=== PATIENT | male | born 1940 | race Caucasian/White ===

== ENCOUNTER 2021-11-25 05:50 | Day surgery (SDC) | payer MEDICARE, BC ==
[~2021-11-25] VITALS: Ht 167.6 cm; Wt 96.4 kg
--- NOTE | ~2021-11-25 | OR ---
[facility] [address] [place], [place] [address] [place] DATE OF OPERATION: 11/25/2021 SURGEON: Jerome Altamirano MD PREOPERATIVE DIAGNOSES: 1. 9 x 16 mm left ureteropelvic junction calculus. 2. Persistent severe left flank pain, secondary to #1. POSTOPERATIVE DIAGNOSES: 1. 9 x 16 mm left ureteropelvic junction calculus. 2. Persistent severe left flank pain, secondary to #1. 3. 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 NAMES OF PROCEDURES: 1. Diagnostic cystoscopy with left retrograde pyelogram. 2. Balloon dilation of stenotic left ureteropelvic junction. 3. Left flexible nephro-ureteroscopy with laser lithotripsy and basket extraction of stone fragments. 4. Insertion of an indwelling 6 x 26 cm double-J ureteral stent into the left collecting system. ANESTHESIA: General. ESTIMATED BLOOD LOSS: None. COMPLICATIONS: None. SPECIMENS: Multiple stone fragments sent to the lab for stone analysis. DRAINS: A 6 x 26 cm double-J ureteral stent inserted into the left kidney. INDICATIONS FOR PROCEDURE: Mr. Hannon is a very pleasant 81-year-old gentleman with a longstanding history of nephrolithiasis, left worse than right. He recently presented to me for the first time to establish care with a urologist. He has seen multiple urologists throughout the PATIENT NAME: KRISTOPHER HORVATH,JULIUS Rizo OPERATIVE REPORT DATE OF : 40 REPORT #: [id number] PHYSICIAN: JEROME ALTAMIRANO MD PCP: ORION SAAVEDRA DO REPORT IS CONFIDENTIAL AND NOT TO BE RELEASED WITHOUT AUTHORIZATION [facility] [address], [place] [address] [place] on [place]. He has undergone multiple stone surgeries including a left anatrophic nephrolithotomy on the [facility] years ago. He has undergone a total of 23 surgeries for his kidney stones. He recently presented to me with intermittent left-sided flank pain and described intermittent blood in his urine as well. He underwent a CT scan, which revealed a 9 x 16 left ureteropelvic junction calculus along with multiple small calculi present in the lower pole of the left kidney, ranging in size from 2 to 4 mm. The patient underwent a complete cardiac clearance prior to today's procedure due to his known heart issues. He now presents today to undergo definitive extraction of his large 16 mm left UPJ calculus. OPERATIVE FINDINGS: 1. On cystoscopy, there was no evidence of any suspicious masses, lesions, or stones. Bilateral ureteral orifices are noted to be in their normal anatomic location. Urethroscopy reveals no significant prostatic obstruction. 2. Left retrograde pyelogram revealed a patent left ureter without any filling defects up to the level of the left ureteropelvic junction. There does appear to be an area of stenosis at the left ureteropelvic junction. The large 60 mm stone is sitting right on top of this area of stenosis. 3. The left UPJ was dilated over a wire using a balloon dilator. The ureteropelvic junction had scarred down to an aperture of about 2 to 3 mm. This was dilated using a balloon for about 3-4 minutes at 12 atmospheres. The dilation was successful as per repeat retrograde films. 4. Flexible left nephroscopy revealed a large 16 mm crystalline stone in the left renal pelvis. This stone was fragmented using a holmium laser at 1.2 joules and a frequency of 8 kilowatts. The stone fragmented relatively easily. I was able to fragment the stone down to very small sizes to about 1 mm or so stone fragments. I was able to basket a few of these fragments using a Zero Tip basket. These specimens will be sent to the lab for analysis. 5. At the end of the procedure, a 6 x 26 cm double-J ureteral stent was inserted into the left ureter and kidney under direct visualization without difficulty. DESCRIPTION OF PROCEDURE: After informed consent was obtained, the patient was taken back to the operating room. [facility] to the operating room table, where general anesthesia was induced. He was placed in the dorsal lithotomy position and his genitalia prepped and draped in a standard sterile fashion. Using a 30-degree lens on a 22.5-Yakut introducer, rigid cystoscope was inserted through his urethra and into his bladder under direct visualization. Panendoscopic views of the bladder and prostatic urethra were then performed. Please see above findings. I then turned my attention to the left ureteral orifice. A cone-tipped catheter was used to perform a left retrograde pyelogram. Please see above findings. I then passed a 0.035 Sensor wire into the left ureter and up into the left collecting system. It was a bit tricky at first to get the PATIENT NAME: JULIUS HANNON JR OPERATIVE REPORT DATE OF : 40 REPORT #: [id number] PHYSICIAN: JEROME ALTAMIRANO MD PCP: ORION SAAVEDRA DO REPORT IS CONFIDENTIAL AND NOT TO BE RELEASED WITHOUT AUTHORIZATION [address] [address] [place] wire to pass the stone; however, I was ultimately successful. I then passed a 04/20 ureteral access sheath over the wire and into the left collecting system under fluoroscopic guidance. The Sensor wire was removed and a repeat left retrograde pyelogram was performed. It was at this time that I noticed that the left UPJ was stenotic with an aperture of about 2-3 mm at best. In fact, I was unable to pass my ureteroscope through the area of stenosis. I then made the decision to balloon dilate this area. I reinserted a Sensor wire and removed the ureteral access sheath. Over the wire, I passed a UroMax balloon dilator and positioned the balloon dilator over the area of stenosis using fluoroscopy. The balloon was then dilated with contrast dye to help with visualization. The balloon was filled to 12 atmospheres for a total of 3-4 minutes. The balloon was then released and removed. Repeat retrograde pyelogram revealed that the area of stenosis was now about 5-6 mm wide. I reinserted the ureteral access sheath over a Sensor wire under fluoroscopic guidance. With the ureteral access sheath in good position, I passed a flexible ureteroscope through the sheath and into the left renal pelvis. There was a mild amount of tortuosity at the proximal left ureter. However, now that the area has been dilated, I am now able to easily pass my camera into the left renal pelvis. While in the pelvis, I did visualize the 19 mm stone. This was fragmented using a holmium laser at 1.2 and 8 settings. The stone fragmented quite easily and I was able to pulverize the entire stone to very small fragments. I obtained a few of these fragments using a Zero Tip basket. These will be sent to the lab for stone analysis. I attempted to find my way into the lower left pole of the kidney where I know there are a few other small stones. However, I was unable to locate the calyx. I suspect this is related to his scar tissue and his previous history of anatrophic nephrolithotomy. I was therefore unable to find the opening to the left lower pole calyx. Once I was satisfied that the stone had been completely obliterated, I passed a Sensor wire through the ureteroscope and into the upper pole of the left kidney. The flexible ureteroscope was then removed fully intact, leaving the wire behind. Over the wire, I passed a 6 x cm double-J ureteral stent into the left collecting system under fluoroscopic guidance. The stent passed quite easily and was placed in good position. An adequate proximal coil was seen within the left renal pelvis. An adequate distal coil was noted on cystoscopy. The patient's bladder was then drained and the cystoscope was removed. The procedure was then terminated. The patient tolerated the procedure well without any complication. He will now be transferred to the postanesthesia care unit in stable condition. DISPOSITION: I discussed the details of today's procedure with the patient and his and answered all their questions. I initially informed his that the stone was successfully treated and that he will be passing sand for the next 2-3 weeks and that he must remain well hydrated. I also made it known to her that I was unable to retrieve the collection of small stones in the lower pole of the left kidney. However, this was not causing him that much discomfort preoperatively. He will stay the night tonight for pain control as PATIENT NAME: JULIUS HANNON JR OPERATIVE REPORT DATE OF : 40 REPORT #: [id number] PHYSICIAN: JEROME ALTAMIRANO MD PCP: ORION SAAVEDRA DO REPORT IS CONFIDENTIAL AND NOT TO BE RELEASED WITHOUT AUTHORIZATION [address] [address] [place] per the patient's request. His diabetic diet will be advanced as tolerated. The plan is for him to be discharged to home tomorrow morning on appropriate oral narcotic pain control. He will be scheduled to return to clinic on December 12 to undergo cystoscopy with left ureteral stent extraction. MD DANG Lee/ANDRA /[id number] Copies: ~ PATIENT NAME: JULIUS HANNON JR OPERATIVE REPORT DATE OF : 40 REPORT #: [id number] PHYSICIAN: JEROME ALTAMIRANO MD PCP: ORION SAAVEDRA DO REPORT IS CONFIDENTIAL AND NOT TO BE RELEASED WITHOUT AUTHORIZATION
[~2021-11-25 05:50] MED LIST: ADULT ASPIRIN R81 MG PO; ADVIL200 MG PO; AMITRIPTYLINE H25 MG PO; ARNUITY ELLIPT50 MCG NAS; BUTALB-ACETAMI1 EAC2 PO; BUTALBIT-ACETA1 EACH PO; CALCIUM500 MG PO; CARBATROL200 MG PO; CARTIA XT120 MG PO; CEFTRIAXONE2 GM IV; CEPHALEXIN500 MG PO; CIALIS20 MG PO; CO Q-1010 MG PO; COLACE100 MG PO; DILAUDID4 MG PO; FISH OIL 1,0001 EAC6 PO; GLUCOPHAGE500 MG PO; HYDROCORTISONE TP; HYDROXYZINE PAM25 MG PO; IPRATROPIUM BRO30 ML NAS; LAXA CLEAR1530 GM PO; LIPITOR40 MG PO; LOVASTATIN20 MG PO; MACRODANTIN50 MG PO; MELATONIN5 M2 PO; METOPROLOL SUCC25 MG PO; MULTIVITAMINS1 EAC8 PO; NITRO-BID1 INCH TD; NITROSTAT0.4 MG SL; PANTOPRAZOLE SO40 MG PO; PRESERVISION A1 EAC3 PO; PROBIOTIC250 MG PO; PYRIDIUM200 MG PO; SLEEP AID25 M1 PO; SPIRONOLACTONE1 EACH PO; TERAZOSIN HCL5 MG PO; VENTOLIN HFA18 GM INH; VITAMIN B-122000 MC1 PO; VITAMIN D350 MC3 PO; ZESTRIL5 MG PO
--- NOTE | 2021-11-25 10:20 | NUR ---
11/25/21 Marlee0 Kristine Sandoval 1009- PT ARRIVES TO PACU NONAROUSABLE TO STIMULI WITH AN OPA IN PLACE. RESP EVEN AND UNLABORED. OXYGEN SAT HIGH 90'S TO 100% ON 8L VIA MASK. PT HAS RECEIVED 15 MG OF TORADOL DURING THE CASE. DR. ALTAMIRANO WOULD LIKE PT TO RECEIVE ANOTHER 15 MG'S.
--- NOTE | 2021-11-25 11:20 | NUR ---
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 CHRONIC BACK PAIN 9/10 WITH SOME BLADDER PAIN ON ADMIT. SCDS, ORIENTED TO ROOM AND CALL LIGHT.
--- NOTE | 2021-11-25 11:30 | NUR ---
pt up and moving in room with therapy, c/o back spasms. agrees to po tylenol with lunch.
--- NOTE | 2021-11-25 13:30 | NUR ---
PATIENT IN BED WATCHING TV AT THIS TIME. VITALS CHARTED. NO I&O'S AT THIS TIME. PATIENT COMPLAINING OF SOME PAIN, RN NOTIFIED. CALL LIGHT IN REACH. NO FURTHER NEEDS AT THIS TIME.
[2021-11-25] MEDS ORDERED: KETOROLAC TROME10 MG PO (15:30)
[2021-11-25] MEDS ORDERED: HYDROXYZINE HCL25 MG PO (15:31)
[2021-11-25] MEDS ORDERED: POTASSIUM CHLO10 ME1 PO (15:42)
[2021-11-25] MEDS ORDERED: FUROSEMIDE40 MG PO (15:43)
--- NOTE | 2021-11-25 16:11 | NUR ---
rn and charge aware that pt void 100 ml of dark urine with a pvr of 100.
[2021-11-25] MEDS ORDERED: CARBAMAZEPINE200 MG PO (16:21)
[2021-11-25] MEDS ORDERED: METFORMIN HCL500 M1 PO (16:22)
--- NOTE | 2021-11-25 18:05 | NUR ---
MED REC COMPLETE
--- NOTE | 2021-11-25 18:30 | NUR ---
educated pt on new medication for bladder pain, pyridium.
--- NOTE | 2021-11-25 19:01 | NUR ---
PATIENT IN BED WATCHING TV. VITALS AND I&O'S CHARTED. LOW URINE OUTPUT, RN NOTIFIED. CALL LIGHT IN REACH. NO FURTHER NEEDS AT THIS TIME.
--- NOTE | 2021-11-25 19:50 | NUR ---
RECEIVED REPORT FROM DAY SHIFT RN. PATIENT IS RESTING IN BED WATCHING TV. NO NEEDS NOTED. CALL LIGHT IN REACH.
--- NOTE | 2021-11-25 19:55 | NUR ---
ANSWERED CALL LIGHT. EMPTIED URINAL WITH 150ML DARK URINE. WHITE BOARD UPDATED.
--- NOTE | 2021-11-25 21:00 | NUR ---
PATIENT ASSESMENT COMPLETED. PATIENT REPOSITIONED IN BED. PATIENT TITRATED TO ROOM AIR. VITALS TAKEN AND RECORDED. INTAKE AND OUTPUT REPORTED. PATIENT RATES PAIN AT A 4/10 AND DENIES THE NEED FOR PAIN MEDICATION. PATIENTS PM MEDS GIVEN PER ORDER. PATIENTS IV INFUSING PER ORDER. PATIENT DENIES ANY FURTHER NEEDS. CALL LIGHT IN REACH.
--- NOTE | 2021-11-25 22:44 | NUR ---
PATIENT CALLED AND REPORTED 7/10 PAIN IN HIS LOWER BACK, PRN PAIN MEDICATION GIVEN PER ORDER. PATIENT PROVIDED WITH FRESH WATER. NO FURTHER NEEDS NOTED. CALL LIGHT IN REACH.
--- NOTE | 2021-11-25 22:57 | NUR ---
CALL LIGHT ANSWERED, URINAL EMPTIED, ORANGE IN COLOR. SCDS APPLIED. CALL LIGHT WITHIN REACH.
--- NOTE | 2021-11-26 00:27 | NUR ---
EMPTIED THE URINAL. CHANGED GOWN, GREEN BLANKET AND WHITE SHEET. WET WITH URINE. NO OTHER NEEDS AT THIS TIME.
--- NOTE | 2021-11-26 02:34 | NUR ---
PATIENTS VITALS TAKEN AND RECORDED. INTAKE AND OUTPUT RECORDED. PATIENT RATES PAIN AT A 3/10 AND DENIES THE NEED FOR PAIN MEDICATION AT THIS TIME. IV INFUSING PER ORDER. FRESH ICE WATER PROVIDED. NO FURTHER NEEDS NOTED. CALL LIGHT IN REACH. SCDS IN USE.
--- NOTE | 2021-11-26 03:23 | NUR ---
PATIENT RATES PAIN AT A 7/10 IN HIS BACK, PRN PAIN MEDICATION GIVEN PER ORDER. PATIENT IS RESTING IN BED. SCDS IN USE. IV INFUSING PER ORDER. NO FURTHER NEEDS NOTED. CALL LIGHT IN REACH.
--- NOTE | 2021-11-26 04:32 | NUR ---
PATIENT IS RESTING IN BED WITH EYES CLSOED, RR 17. CALL LIGHT IN REACH.
--- NOTE | 2021-11-26 06:41 | NUR ---
PATIENT ASSISTED TO THE RECLINER A 1PA. PATIENT REPORTS "UPSET STOMAHC". PRN NAUSEA MEDICATION GIVEN PER REQUEST. PATIENT REPORTS PAIN 7/10 PAIN I NHIS BACK, PRN PAIN MEDICATION GIVEN PER ORDER. PATIENT ABLE TO GET BACK PAIN STIMULATOR WORKING. FRESH ICE WATER AND WARM BLANKET PROVIDED. NO FURTHER NEEDS NOTED. CALL LIGHT IN REACH.
[2021-11-26] MEDS ORDERED: MACROBID 100 M100 MG PO (08:05)
[2021-11-26] MEDS ORDERED: DILAUDID4 MG PO (08:06)
[2021-11-26] MEDS ORDERED: PYRIDIUM200 MG PO (08:07)
--- NOTE | 2021-11-26 10:03 | NUR ---
Lon plans to discharge to home today with his . He feels safe with the discharge plan. He is oriented to person, place and time and answers questions appropriately. He denies dificulty with obtaining food, picking up and paying for prescriptions, etc. He states his does most of the driving and that they are able to provide their needs without dificulty financially. 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 No concerns expressed. Lon reports that he is very happy with his care here in the hospital.
== END 2021-11-26 11:00 | disposition home or self-care (01) ==
LOC: DS 05:50 → MS 11:55 → DS 11-26 11:00
PROVIDERS: ATTEND Urology
PROC: 0TJ98ZZ Inspection of Ureter, Via Natural or Artificial Opening Endoscopic (ICD-10-PCS; 2021-11-25)
PROC: 0TC48ZZ Extirpation of Matter from Left Kidney Pelvis, Via Natural or Artificial Opening Endoscopic (ICD-10-PCS; principal; 2021-11-25 07:00)
PROC: 0T778DZ Dilation of Left Ureter with Intraluminal Device, Via Natural or Artificial Opening Endoscopic (ICD-10-PCS; 2021-11-25 07:00)
DX: N20.2 Calculus of kidney with calculus of ureter (principal); E78.5 Hyperlipidemia, unspecified; N13.5 Crossing vessel and stricture of ureter without hydronephrosis; G43.909 Migraine, unspecified, not intractable, without status migrainosus; E11.40 Type 2 diabetes mellitus with diabetic neuropathy, unspecified; I25.10 Atherosclerotic heart disease of native coronary artery without angina pectoris; N40.1 Benign prostatic hyperplasia with lower urinary tract symptoms; I11.0 Hypertensive heart disease with heart failure; I50.9 Heart failure, unspecified; J44.9 Chronic obstructive pulmonary disease, unspecified; Z80.42 Family history of malignant neoplasm of prostate; Z79.84 Long term (current) use of oral hypoglycemic drugs; Z79.82 Long term (current) use of aspirin; Z20.822 Contact with and (suspected) exposure to COVID-19; Z96.642 Presence of left artificial hip joint
CPT/HCPCS: 74420; 82365; C1769; C2617; J0131; J0690; J0696; J1100; J1170; J1815; J1885; J2001; J2405; J2704; J3010; J7121; Q0177; Q9967; U0003